=== PATIENT | female | born 1980 | race African-American/Black ===

== ENCOUNTER 2016-08-05 21:07 | Emergency (ER) ==
--- NOTE | 2016-08-06 00:10 | PROVIDER DOCUMENTATION ---
HPI-Female /OB/Breast <Rachelle Can - Last Filed: 08/06/16 01:46> - General Source: reports: patient - History of Present Illness-Female /OB Does patient report she is ?: No Location of complaint: reports: RLQ Radiation: reports: other (RUQ) Quality of Pain: reports: cramping Severity in ED: reports: mild Onset/Duration: reports: 4-6 hours ago Timing: reports: still present Context/Activities at Onset: reports: none Associated Symptoms: reports: denies symptoms Similar Symptoms Previously?: Yes Recently seen or treated by another doctor?: Yes <AriVandana sellers - Last Filed: 08/06/16 02:55> - General Chief Complaint: Female Stated Complaint: FEMALE Time Seen by Provider: 08/05/16 23:44 Allergies/Adverse Reactions: Patient Allergies Allergy/AdvReac Type Severity Reaction Status Date / Time No Known Allergies Allergy Verified 08/06/16 00:33 Home Medications: Home Medication List Medication Instructions Recorded Confirmed Last Taken Type No Home Medications 08/06/16 08/06/16 Unknown History - History of Present Illness-Female /OB Nature of Presenting Problem: 36 y/o F with history of right ovarian cyst, partial hysterectomy presents with right sided abdominal pain x 4 hours. Pain is described as a balling up sensation worse in right middle quadrant and radiating to RUQ and RLQ. Pain is worse with standing for long periods. Pain has been intermittent over the past 3 weeks. She was seen here on 07/16/16 for same symptoms and diagnosed with ovarian cyst. She followed up with her [employer], Dr. Metcalf, and had US to confirm and is scheduled for surgery to remove the ovary on 08/24/16. She has been out of her pain medication for 4 days and has not taken any meds for this today. Denies fever, chills, N/V/D, dysuria. (Rachelle Can) Review of Systems - Adult - REVIEW OF SYSTEMS - ADULT Constitutional: denies: chills, fever Eyes: reports: no symptoms reported Ears, Nose, Mouth & Throat: reports: no symptoms reported Cardiovascular: denies: chest pain, palpitations Respiratory: denies: cough, shortness of breath Gastrointestinal: reports: abdominal pain. denies: nausea, vomiting Genitourinary: reports: no symptoms reported Musculoskeletal: reports: no symptoms reported Integumentary: reports: no symptoms reported Neurological: reports: no symptoms reported Psychiatric: reports: no symptoms reported Endocrine: reports: no symptoms reported Hematologic/Lymphatic: reports: no symptoms reported Allergic/Immunologic: reports: no symptoms reported All Other Systems: Reviewed and Negative <Vandana Chapman - Last Filed: 08/06/16 02:55> Past History - Adult - PAST MEDICAL HISTORY-ADULT Musculoskeletal: reports: chronic pain Neurological: reports: headaches/migraines Psychiatric: reports: anxiety - PRIOR SURGERIES/PROCEDURES Surgical/Procedure History: reports: hysterectomy, BTL, orthopedic (extremity) - IMMUNIZATION STATUS Childhood Immunizations: UTD Flu Vaccine: See Nurse Assessment - FAMILY HISTORY Family History: reviewed, not pertinent <Rachelle Can - Last Filed: 08/06/16 01:46> - PAST MEDICAL HISTORY-ADULT Review of Records: reports: Nursing Assessment Review, Medications Reviewed Major Childhood Illnesses: reports: denies history Neurological: reports: headaches/migraines - PRIOR SURGERIES/PROCEDURES Surgical/Procedure History: reports: hysterectomy, BTL, orthopedic (extremity), other (pelvic) - IMMUNIZATION STATUS Childhood Immunizations: See Nurse Assessment Flu Vaccine: See Nurse Assessment - SOCIAL HISTORY Smoking: non-smoker Substance Use: none/never Alcohol Use Frequency: occasionally (special occasions) <Vandana Chapman - Last Filed: 08/06/16 02:55> Physical Exam-General - PHYSICAL EXAM-ADULT Initial Vital Signs Reviewed: Yes - CONSTITUTIONAL General Appearance: appears well, alert, no apparent distress - RESPIRATORY Respiratory: chest non-tender, lungs clear, normal breath sounds - CARDIOVASCULAR Cardiovascular: normal peripheral pulses, regular rate, rhythm, no edema - GASTROINTESTINAL (ABDOMEN) Abdominal Exam: normal bowel sounds, soft, tenderness (RLQ RUQ). negative: distended, guarding, rigid, mass - SKIN Integumentary: normal color, normal turgor, warm/dry - PSYCHIATRIC Psych/Mental Status: normal mood/affect, normal thought content, normal thought process, oriented x 3 <Vandana Chapman - Last Filed: 08/06/16 02:55> Progress - REASSESSMENT Reassessment #1 Time Reassessed: 01:46 (Patient reports no improvement in pain. Will give morphine. Labs unremarkable. CT pending. Discussed patient with Dr. Kiser who will assume care of patient, follow up on CT results and dispo patient.) Status: unchanged <Rachelle Can - Last Filed: 08/06/16 01:46> - CT/MRI 1 CT Study: Abdomen, Pelvis Impression: Normal (No diverticulitis or bowel obstcruction. Normal appendix. Moderate stool in the colon: Dr. Teixeira(real rad radiologist)) <Vadnana Chapman - Last Filed: 08/06/16 02:55> - PLAN OF CARE/RESULTS Progress/Plan/Lab Results: Laboratory Tests 08/06/16 08/06/16 08/06/16 00:31 00:31 00:31 WBC 5.55 RBC 4.57 Hgb 12.6 Hct 38.3 MCV 83.8 MCH 27.6 MCHC 32.9 L RDW Std Deviation 13.4 Plt Count 259 MPV 10.3 Immature Gran % (Auto) 0.2 Neut % (Auto) 46.3 Lymph % (Auto) 43.4 [place] % (Auto) 7.2 Eos % (Auto) 1.6 Baso % (Auto) 1.3 H Immature Gran # (Auto) 0.01 Neut # (Auto) 2.57 Lymph # (Auto) 2.41 [place] # (Auto) 0.40 Eos # (Auto) 0.09 Baso # (Auto) 0.07 Sodium 137 Potassium 3.5 Chloride 99 Carbon Dioxide 25 Anion Gap 14 BUN 16 Creatinine 0.8 Estimated GFR/1.73 m2 > 60 BUN/Creatinine Ratio 20 Glucose 104 Calculated Osmolality 275 Calcium 10.0 Total Bilirubin 0.30 AST 18 ALT 13 Alkaline Phosphatase 59 Total Protein 8.0 Albumin 4.9 Globulin 3.0 Albumin/Globulin Ratio 2.0 Lipase 37 Urine Source CLEAN CATCH Urine Color STRAW Urine Clarity HAZY A Urine pH 7.0 Ur Specific [place] 1.015 Urine Protein NEGATIVE Urine Ketones NEGATIVE Urine Blood NEGATIVE Urine Nitrite NEGATIVE Urine Bilirubin NEGATIVE Urine Urobilinogen NORMAL Urine Microscopic RBC <10 Urine WBC TRACE A Urine Microscopic WBC <10 Ur Epithelial Cells <10 Urine Bacteria 2+ Urine Glucose NEGATIVE Orders Category Date Time Status IV Insertion ORDERED Care 08/06/16 00:[address] ABD/PELVIS W/ IV CONT ONLY [CT] Stat Exams 08/06/16 01:38 Ordered CBC WITH ELECTRONIC DIFF [HEME] Stat Lab 08/06/16 00:31 Completed COMPREHENSIVE METABOLIC PANEL [CHEM] Stat Lab 08/06/16 00:31 Completed LIPASE [CHEM] Stat Lab 08/06/16 00:[address] W/POSS RFLX CULT [URINALYSIS] Stat Lab 08/06/16 00:31 Completed URINE CULTURE [RM] Routine Lab 08/06/16 01:05 Ordered Ketorolac [Toradol] Med 08/06/16 00:17 Discontinued 30 mg IV NOW ONE Morphine Med 08/06/16 01:37 Discontinued 4 mg IV NOW ONE Ondansetron [Zofran] Med 08/06/16 01:37 Discontinued 4 mg IV NOW ONE Vital Signs Temp Pulse Resp BP Pulse Ox 08/05/16 21:15 98.2 F 84 20 130/82 98 No Known Allergies Allergy (Verified 08/06/16 00:33) No Home Medications 08/06/16 Laboratory 08/06/16 08/06/16 08/06/16 00:31 00:31 00:31 WBC 5.55 RBC 4.57 Hgb 12.6 Hct 38.3 MCV 83.8 MCH 27.6 MCHC 32.9 L RDW Std Deviation 13.4 Plt Count 259 MPV 10.3 Immature Gran % (Auto) 0.2 Neut % (Auto) 46.3 Lymph % (Auto) 43.4 [place] % (Auto) 7.2 Eos % (Auto) 1.6 Baso % (Auto) 1.3 H Immature Gran # (Auto) 0.01 Neut # (Auto) 2.57 Lymph # (Auto) 2.41 [place] # (Auto) 0.40 Eos # (Auto) 0.09 Baso # (Auto) 0.07 Sodium 137 Potassium 3.5 Chloride 99 Carbon Dioxide 25 Anion Gap 14 BUN 16 Creatinine 0.8 Estimated GFR/1.73 m2 > 60 BUN/Creatinine Ratio 20 Glucose 104 Calculated Osmolality 275 Calcium 10.0 Total Bilirubin 0.30 AST 18 ALT 13 Alkaline Phosphatase 59 Total Protein 8.0 Albumin 4.9 Globulin 3.0 Albumin/Globulin Ratio 2.0 Lipase 37 Urine Source CLEAN CATCH Urine Color STRAW Urine Clarity HAZY A Urine pH 7.0 Ur Specific [place] 1.015 Urine Protein NEGATIVE Urine Ketones NEGATIVE Urine Blood NEGATIVE Urine Nitrite NEGATIVE Urine Bilirubin NEGATIVE Urine Urobilinogen NORMAL Urine Microscopic RBC <10 Urine WBC TRACE A Urine Microscopic WBC <10 Ur Epithelial Cells <10 Urine Bacteria 2+ Urine Glucose NEGATIVE (Rachelle Can) Orders Category Date Time Status IV Insertion ORDERED Care 08/06/16 00:[address] ABD/PELVIS W/ IV CONT ONLY [CT] Stat Exams 08/06/16 01:38 Taken CBC WITH ELECTRONIC DIFF [HEME] Stat Lab 08/06/16 00:31 Completed COMPREHENSIVE METABOLIC PANEL [CHEM] Stat Lab 08/06/16 00:31 Completed LIPASE [CHEM] Stat Lab 08/06/16 00:[address] W/POSS RFLX CULT [URINALYSIS] Stat Lab 08/06/16 00:31 Completed URINE CULTURE [RM] Routine Lab 08/06/16 01:05 Ordered Ketorolac [Toradol] Med 08/06/16 00:17 Discontinued 30 mg IV NOW ONE Morphine Med 08/06/16 01:55 Discontinued 2 mg .ROUTE .STK-MED ONE Morphine Med 08/06/16 01:37 Discontinued 4 mg IV NOW ONE Ondansetron [Zofran] Med 08/06/16 01:37 Discontinued 4 mg IV NOW ONE Laboratory Tests 08/06/16 08/06/16 08/06/16 00:31 00:31 00:31 WBC 5.55 RBC 4.57 Hgb 12.6 Hct 38.3 MCV 83.8 MCH 27.6 MCHC 32.9 L RDW Std Deviation 13.4 Plt Count 259 MPV 10.3 Immature Gran % (Auto) 0.2 Neut % (Auto) 46.3 Lymph % (Auto) 43.4 [place] % (Auto) 7.2 Eos % (Auto) 1.6 Baso % (Auto) 1.3 H Immature Gran # (Auto) 0.01 Neut # (Auto) 2.57 Lymph # (Auto) 2.41 [place] # (Auto) 0.40 Eos # (Auto) 0.09 Baso # (Auto) 0.07 Sodium 137 Potassium 3.5 Chloride 99 Carbon Dioxide 25 Anion Gap 14 BUN 16 Creatinine 0.8 Estimated GFR/1.73 m2 > 60 BUN/Creatinine Ratio 20 Glucose 104 Calculated Osmolality 275 Calcium 10.0 Total Bilirubin 0.30 AST 18 ALT 13 Alkaline Phosphatase 59 Total Protein 8.0 Albumin 4.9 Globulin 3.0 Albumin/Globulin Ratio 2.0 Lipase 37 Urine Source CLEAN CATCH Urine Color STRAW Urine Clarity HAZY A Urine pH 7.0 Ur Specific [place] 1.015 Urine Protein NEGATIVE Urine Ketones NEGATIVE Urine Blood NEGATIVE Urine Nitrite NEGATIVE Urine Bilirubin NEGATIVE Urine Urobilinogen NORMAL Urine Microscopic RBC <10 Urine WBC TRACE A Urine Microscopic WBC <10 Ur Epithelial Cells <10 Urine Bacteria 2+ Urine Glucose NEGATIVE Vital Signs - 24 hr 08/05/16 21:15 Temperature 98.2 F Pulse Rate 84 Respiratory 20 Rate Blood Pressure 130/82 O2 Sat by Pulse 98 Oximetry Pt given results and will be d/c home w/ rx to follow up with PCP. Pt verbally understood instructions. PT remained clinically stable throughout the course of the ED stay and will return if symptoms worsen. (Vandana Chapman) Departure <Rachelle Can - Last Filed: 08/06/16 01:46> <Vandana Chapman - Last Filed: 08/06/16 02:55> - Departure Referrals: Cassie Valadez MD [Primary Care Provider] - Attestation - Physician/ [place] Attestation Patient care was provided by Advanced Practice Provider:: Yes Advanced Practice Provider:: Rachelle Can Advanced Practice Provider documentation review:: The Mid-level provider documentation, treatment plan and medical decision making was reviewed by the physician who agrees with all treatment and medical decision making by the MLP. <Rachelle Can - Last Filed: 08/06/16 01:46> - Scribe Verification/Attestation Scribe:: Vandana Chapman Acting as Scribe for:: Rachelle Can Scribe documention review:: This chart was documented by a scribe and accurately reflects the service the provider performed and the decisions made by the provider. <Vandana Chapman - Last Filed: 08/06/16 02:55> Physician Attestation - Physician Attestation I, the provider, attest to the following statement:: Rachelle Can Physician documentation Attestation:: This documentation recorded by the scribe accurately reflects the service I personally performed and the decisions made by me. <Vandana Chapman - Last Filed: 08/06/16 02:55>
[2016-08-06] MEDS ORDERED: TORADOL IV ONE (00:17)
[2016-08-06 00:32] LABS: MANUAL DIFF NEEDED? NO; URINE SOURCE CLEAN CATCH
[2016-08-06 00:43] LABS: BASO% 1.3 % (0.0-0.8); EOS# 0.09 X1000 (0.0-0.7); EOS% 1.6 % (0.0-10.0); HEMATOCRIT 38.3 % (37.0-47.0); HEMOGLOBIN 12.6 g/dL (12.0-16.0); IMM GRAN# 0.01 X1000 (0.0-0.04); IMM GRAN% 0.2 % (0.0-0.5); LYMPH# 2.41 X1000 (1.2-3.4); LYMPH% 43.4 % (20.5-51.1); MCH 27.6 PG (27-31); MCHC 32.9 g/dL (33-37); MCV 83.8 FL (81-99); MONO% 7.2 % (1.7-9.3); MPV 10.3 FL (7.4-10.4); NEUT% 46.3 % (42.2-75.2); PLT 259 X1000 (130-400); RBC 4.57 XMIL (4.2-5.4)
[2016-08-06 01:00] LABS: BILIRUBIN URINE NEGATIVE (NEGATIVE); BLOOD URINE NEGATIVE (NEGATIVE); CLARITY HAZY (CLEAR); COLOR STRAW; GLUCOSE URINE NEGATIVE (NEGATIVE); LEUKOCYTES URINE TRACE (NEGATIVE); NITRITE URINE NEGATIVE (NEGATIVE); PROTEIN URINE NEGATIVE (NEGATIVE); SP GRAVITY URINE 1.015; UROBILINOGEN URINE NORMAL
[2016-08-06 01:04] LABS: URINE EPITHELIAL CELLS <10 /HPF (<10); URINE RBC <10 /HPF (<10); URINE WBC <10 /HPF (<10)
[2016-08-06 01:05] LABS: URINE CULTURE PL NEEDED? YES
[2016-08-06] MEDS ORDERED: MORPHINE IV ONE (01:37)
[2016-08-06] MEDS ORDERED: ZOFRAN IV ONE (01:37)
[2016-08-06 01:41] LABS: AGAP 14; ALBUMIN 4.9 g/dL (3.5-5.0); ALKALINE PHOSPHATASE 59 U/L (32-104); BUN 16 mg/dL (8-22); CHLORIDE 99 mmol/L (98-107); COSMO 275; GOT 18 U/L (10-30); GPT 13 U/L (10-36); LIPASE 37 U/L (13-60); POTASSIUM 3.5 mmol/L (3.5-5.1); SODIUM 137 mmol/L (136-145); TCO2 25 mmol/L (25-35)
[2016-08-06] MEDS ORDERED: MORPHINE ONE (01:55)
[2016-08-06 03:22] VITALS: BP 122/80
--- NOTE | 2016-08-06 07:40 | Diag Imaging Result Document ---
PROCEDURE NAME: CT ABD/PELVIS W/ IV CONT ONLY - 08/06/2016 CT OF THE ABDOMEN WITH INTRAVENOUS CONTRAST: COMPARISON: The current study is compared with that of 07/16/2016. FINDINGS: The visualized portion of the chest is unremarkable. There is stool throughout the colon. The small bowel is not distended. There is no evidence of gastric distention. The spleen and adrenal glands are normal in size and appearance. The pancreas is unremarkable. There is no evidence of hydronephrosis or mass in the kidneys. There may be some small cortical cysts present in the right kidney versus scarring. There has been previous internal fixation of the right iliac bone and sacrum. The screw produces a certain amount of beam-hardening artifact. CT OF THE PELVIS WITH INTRAVENOUS CONTRAST: FINDINGS: There is no evidence of appendicitis. There is a small amount of free fluid. There is a lucent-appearing structure on the right side measuring at least 2.6 cm in diameter. This is apparently slightly smaller than on the previous study of 07/16/2016. The CT density of this is far greater than one would expect for a simple cyst. On the previous study, the CT density exceeded 20 Hounsfield units. On the current study, it is exceeds 35 Hounsfield units. This may represent a hemorrhagic cyst or endometrioma. Otherwise, the regional skeleton is intact. IMPRESSION: 1. Constipation. 2. Right ovarian hemorrhagic cyst or endometrioma. Further evaluation with pelvic ultrasonography is recommended.
== END 2016-08-06 03:15 | disposition home or self-care (01) ==
LOC: P.ED 21:07
DX: K59.00 Constipation, unspecified (principal); R10.11 Right upper quadrant pain; R10.12 Left upper quadrant pain; R10.813 Right lower quadrant abdominal tenderness; G89.29 Other chronic pain; Z87.42 Personal history of other diseases of the female genital tract
CPT/HCPCS: 74177; 80053; 81001; 83690; 85025; 87088; 96374; 96375; J1885; J2270; J2405; Q9967